=== PATIENT | female | born 1985 | race African-American/Black ===

== ENCOUNTER 2018-10-31 14:47 | Emergency (ER) | payer OTHER ==
[~2018-10-31] VITALS: Ht 162.6 cm; Wt 59.0 kg
--- NOTE | 2018-10-31 15:00 | NUR ---
ED Nurse Note: Pt AAO x4 present at ER c/o 10/10 abdominal pain. 13 weeks of and pain started this morning by 10am. No vaginal bleeding, N/V/D. VSS and calm and cooperative with initial assessment while gramacing due to severe pain.
[2018-10-31] MEDS ORDERED: NKM (15:16)
--- NOTE | 2018-10-31 15:20 | NUR ---
ED Nurse Note: Pt had concern regarding Morphin during . PA informed. PA spoke to the pt and pt agreed to manage the pain.
--- NOTE | 2018-10-31 15:26 | Emergency Room Report ---
History of Present Illness General Chief Complaint: Complications Source: Patient Present Illness HPI 33-year-old female presents to the emergency department complaining of 10 out of 10 in severity right lower quadrant pain since approximately 10am this morning. Patient reports nausea she denies vomiting she denies fevers or chills. Patient reports for the most part sudden onset however she states she experienced some pain and cramping in that area during the previous few days which did resolve on its own and was tolerable. Patient is no bleeding or discharge she states that she is 13 weeks now she has already had multiple [employer] visits and had IUP established via ultrasound. She is . No significant past medical history other than a uterine fibroid, denies surgeries. She reports urinary frequency denies dysuria, hematuria or urgency. Allergies: Coded Allergies: No Known Allergies (Unverified , 10/31/18) Patient History Past Medical History: see triage record Past Surgical History: none Pertinent Family History: none Now: Yes Reviewed Nursing Documentation: PMH: Agreed; PSxH: Agreed Nursing Documentation-PMH Past Medical History: No History, Except For Review of Systems All Other Systems: negative except mentioned in HPI Physical Exam Vital Signs Date Time Temp Pulse Resp B/P (MAP) Pulse Ox O2 Delivery O2 Flow Rate FiO2 10/31/18 15:11 98.8 78 16 122/81 97 Room Air Sp02 EP Interpretation: reviewed, normal General Appearance: no apparent distress, alert, GCS 15, non-toxic Head: normocephalic, atraumatic Eyes: bilateral eye normal inspection, bilateral eye PERRL ENT: hearing grossly normal, normal voice Neck: full range of motion Respiratory: lungs clear, normal breath sounds, no wheezing, speaking full sentences Cardiovascular #1: regular rate, rhythm, no edema Gastrointestinal: normal bowel sounds, soft, tenderness - TTP to the lower abdomen and in the RLQ, no epigastric RUQ, or LUQ ttp. Genitourinary: normal inspection, no CVA tenderness Musculoskeletal: back normal, gait/station normal, normal range of motion, non- tender Neurologic: alert, oriented x3, responsive, motor strength/tone normal, sensory intact, normal gait, speech normal, grossly normal Psychiatric: judgement/insight normal Skin: normal color, no rash, warm/dry, well hydrated Medical Decision Making PA Attestation Dr. miles is my supervising Physician whom patient management has been discussed with. Diagnostic Impression: Primary Impression: Abdominal pain during Qualified Codes: O26.892 - Other specified related conditions, second trimester; R10.9 - Unspecified abdominal pain Additional Impressions: Uterine fibroid in Yeast infection ER Course 33-year-old female presents to the emergency department complaining of 10 out of 10 in severity right lower quadrant pain since approximately 10am this morning. Patient reports nausea she denies vomiting she denies fevers or chills. Patient reports for the most part sudden onset however she states she experienced some pain and cramping in that area during the previous few days which did resolve on its own and was tolerable. Patient is no bleeding or discharge she states that she is 13 weeks now she has already had multiple [employer] visits and had IUP established via ultrasound. She is . No significant past medical history other than a uterine fibroid, denies surgeries. She reports urinary frequency denies dysuria, hematuria or urgency. Ddx considered but are not limited to: , ectopic ,Spontaneous , Ovarian torsion, Ovarian cyst. PID, acute appendicitis, gall stones, Fibroids just to name a few. Vital signs: are WNL, pt. is afebrile H&PE are most consistent with: abdominal pain during , some suspicion for appendicitis or fibroid ORDERS: -CBC,CMP,LIPASE: unremarkable other than WBC's of 12.9 -Urine hcg- Positive -UA: -serum Hcg Quant: [id number] -Pelvic US complete- normal intrauterine estimated at 13 weeks gestation. ED INTERVENTIONS: None at this time. -2mg Morphine IV -- d/w pt. the risk vx. benefits of opiate pain medication during . a collaborative decision also involving her was that at this time benefits of pain reduction outweigh risk of harm. collaboratively decided to start at a very small dose to find minimum amt. needed for reducing pain to a tolerable level. -1 Liter NS. -4mg Morphine IV DISCHARGE: At this time pt. is stable for d/c to home. Will provide printed patient care instructions, and any necessary prescriptions. Care plan and follow up instructions have been discussed with the patient prior to discharge. Labs Test 10/31/18 15:25 10/31/18 16:45 White Blood Count 12.9 K/UL (4.8-10.8) Red Blood Count 3.66 M/UL (4.20-5.40) Hemoglobin 11.2 G/DL (12.0-16.0) Hematocrit 33.2 % (37.0-47.0) Mean Corpuscular Volume 91 FL (80-99) Mean Corpuscular Hemoglobin 30.6 PG (27.0-31.0) Mean Corpuscular Hemoglobin Concent 33.8 G/DL (32.0-36.0) Red Cell Distribution Width 11.0 % (11.6-14.8) Platelet Count 379 K/UL (150-450) Mean Platelet Volume 5.3 FL (6.5-10.1) Neutrophils (%) (Auto) 83.9 % (45.0-75.0) Lymphocytes (%) (Auto) 10.9 % (20.0-45.0) Monocytes (%) (Auto) 4.2 % (1.0-10.0) Eosinophils (%) (Auto) 0.5 % (0.0-3.0) Basophils (%) (Auto) 0.6 % (0.0-2.0) Sodium Level 131 MMOL/L (136-145) Potassium Level 3.6 MMOL/L (3.5-5.1) Chloride Level 96 MMOL/L (98-107) Carbon Dioxide Level 26 MMOL/L (21-32) Anion Gap 9 mmol/L (5-15) Blood Urea Nitrogen 7 mg/dL (7-18) Creatinine 0.7 MG/DL (0.55-1.30) Estimat Glomerular Filtration Rate > 60 mL/min (>60) Glucose Level 88 MG/DL (74-106) Calcium Level 9.7 MG/DL (8.5-10.1) Total Bilirubin 0.3 MG/DL (0.2-1.0) Aspartate Amino Transf (AST/SGOT) 23 U/L (15-37) Alanine Aminotransferase (ALT/SGPT) 12 U/L (12-78) Alkaline Phosphatase 63 U/L (46-116) Total Protein 8.6 G/DL (6.4-8.2) Albumin 3.1 G/DL (3.4-5.0) Globulin 5.5 g/dL Albumin/Globulin Ratio 0.6 (1.0-2.7) Lipase 56 U/L (73-393) Human Chorionic Gonadotropin, Quant 033969 mIU/mL (1-6) Urine Color Yellow Urine Appearance Clear Urine pH 6 (4.5-8.0) Urine Specific [place] 1.020 (1.005-1.035) Urine Protein 1+ (NEGATIVE) Urine Glucose (UA) Negative (NEGATIVE) Urine Ketones 4+ (NEGATIVE) Urine Blood 3+ (NEGATIVE) Urine Nitrite Negative (NEGATIVE) Urine Bilirubin Negative (NEGATIVE) Urine Urobilinogen 1 MG/DL (0.0-1.0) Urine Leukocyte Esterase 1+ (NEGATIVE) Urine RBC 2-4 /HPF (0 - 2) Urine WBC 2-4 /HPF (0 - 2) Urine Squamous Epithelial Cells Few /LPF (NONE/OCC) Urine Bacteria Few /HPF (NONE) Urine Mucus Few /LPF (NONE/OCC) Urine Yeast Occasional /HPF (NONE) Last Vital Signs Date Time Temp Pulse Resp B/P (MAP) Pulse Ox O2 Delivery O2 Flow Rate FiO2 10/31/18 15:11 98.8 78 16 122/81 97 Room Air Disposition: HOME, SELF-CARE Condition: Stable Scripts Fluconazole (FLUCONAZOLE) 100 Mg Tablet 100 MG ORAL DAILY, #3 TAB 0 Refills Prov: Minal Bruce 10/31/18 Acetaminophen* (TYLENOL EXTRA STRENGTH*) 500 Mg Tablet 500 MG ORAL Q6H, #30 TAB 0 Refills Prov: Minal Bruce 10/31/18 Patient Instructions: Uterine Fibroids, [id number] Additional Instructions: Take medications as directed. Follow up with a OBGYN within 48 hours, even if your symptoms have resolved. Return sooner to ED if new symptoms occur, or current symptoms become worse. - Please note that this Emergency Department Report was dictated using [employer]flare maker technology software, occasionally this can lead to erroneous entry secondary to interpretation by the dictation equipment. Minal Bruce Oct 31, 2018 15:26
[2018-10-31] MEDS ORDERED: Morphine Sulfate 2mg/ml Inj IVP ONE (15:30)
[2018-10-31 15:49] LABS: BASOPHILS % (AUTO) 0.6 % (0.0-2.0); EOSINOPHILS % (AUTO) 0.5 % (0.0-3.0); HEMATOCRIT 33.2 % (37.0-47.0); HEMOGLOBIN 11.2 G/DL (12.0-16.0); LYMPHOCYTES % (AUTO) 10.9 % (20.0-45.0); MEAN CORPUSCULAR VOLUME 91 FL (80-99); MONOCYTES % (AUTO) 4.2 % (1.0-10.0); NEUTROPHILS % (AUTO) 83.9 % (45.0-75.0); PLATELET COUNT 379 K/UL (150-450); RED BLOOD COUNT 3.66 M/UL (4.20-5.40); WHITE BLOOD COUNT 12.9 K/UL (4.8-10.8)
[2018-10-31 15:54] LABS: ANION GAP 9 mmol/L (5-15); BLOOD UREA NITROGEN 7 mg/dL (7-18); CALCIUM 9.7 MG/DL (8.5-10.1); CARBON DIOXIDE 26 MMOL/L (21-32); CHLORIDE 96 MMOL/L (98-107); CREATININE 0.7 MG/DL (0.55-1.30); POTASSIUM 3.6 MMOL/L (3.5-5.1); SODIUM 131 MMOL/L (136-145)
[2018-10-31 16:00] LABS: ALANINE AMINOTRANSFERASE 12 U/L (12-78); ALBUMIN 3.1 G/DL (3.4-5.0); ALBUMIN/GLOBULIN RATIO 0.6 (1.0-2.7); ALKALINE PHOSPHATASE 63 U/L (46-116); ASPARTATE AMINO TRANSFERASE 23 U/L (15-37); BILIRUBIN,TOTAL 0.3 MG/DL (0.2-1.0)
--- NOTE | 2018-10-31 16:03 | NUR ---
ED Nurse Note: urine collected and sent down to the lab.
[2018-10-31 17:00] LABS: APPEARANCE,URINE CLEAR; BILIRUBIN, URINE NEGATIVE (NEGATIVE); GLUCOSE, URINE (UA) NEGATIVE (NEGATIVE); KETONES,URINE 4+ (NEGATIVE); LEUKOCYTE ESTERASE ,URINE 1+ (NEGATIVE); NITRITE,URINE NEGATIVE (NEGATIVE); PH,URINE 6 (4.5-8.0); PROTEIN,URINE 1+ (NEGATIVE); UROBILINOGEN,URINE 1 MG/DL (0.0-1.0)
[2018-10-31] MEDS ORDERED: Morphine Sulfate 4mg/ml Inj (IV/IM USE ONLY) IVP ONE (17:00)
[2018-10-31 17:09] LABS: COLOR,URINE YELLOW
--- NOTE | 2018-10-31 17:10 | NUR ---
US ETA 1800
--- NOTE | 2018-10-31 17:13 | NUR ---
ED Nurse Note: was notified by STEVEN Sotomayor that no US montez at this time. whipper beater Deepthi Andrews will be here within one hour.
--- NOTE | 2018-10-31 19:35 | Diagnostic Imaging Report ---
EXAM: US Pelvis Complete, Transabdominal US Pelvis, Transvaginal CLINICAL HISTORY: ABD PAIN TECHNIQUE: Real-time transabdominal and transvaginal pelvic ultrasound (complete) with image documentation. Transvaginal imaging was used for better evaluation of the endometrium and adnexa. COMPARISON: No relevant prior studies available. FINDINGS: Uterus/cervix: IUP measuring 13 weeks 0 days with heart rate 169 beats/minute. Presumed uterine fibroid measuring 16.6 x 11.6 x 14.1 cm. Right ovary: The ovaries are not visualized. Left ovary: See above. Free fluid: No free fluid. IMPRESSION: 1. IUP measuring 13 weeks 0 days with heart rate 169 beats/minute. 2. Presumed uterine fibroid measuring 16.6 x 11.6 x 14.1 cm.
[2018-10-31] MEDS ORDERED: TYLENOL EXTRA500 MG ORAL (19:58)
[2018-10-31 20:05] VITALS: BP 127/77
--- NOTE | 2018-10-31 20:05 | NUR ---
ED Nurse Note: Patient cleared for discharge by ERMZackary. Patient AOx4, VSS, ambulatory with steady gait, no s/s of acute distress noted at this time. patient provided with discharge instructions and medication prescriptions. Patient verbalized understanding. patient ID band and IV access removed. Patient took all personal belongings with her. Patient instructed to follow up with OBGYN in 2-3x days. Patient has at bedside to take her home.
[2018-10-31] MEDS ORDERED: FLUCONAZOLE100 MG ORAL (21:26)
== END 2018-10-31 20:05 | disposition home or self-care (01) ==
LOC: EMR 15:32
DX: O26.891 Other specified pregnancy related conditions, first trimester (principal); Z3A.13 13 weeks gestation of pregnancy; R10.31 Right lower quadrant pain; O34.11 Maternal care for benign tumor of corpus uteri, first trimester; D25.9 Leiomyoma of uterus, unspecified; O98.811 Other maternal infectious and parasitic diseases complicating pregnancy, first trimester; B37.9 Candidiasis, unspecified
CPT/HCPCS: 36415; 76856; 80053; 81003; 83690; 84702; 85025; 87086; 96374; 96376; 99284; J2270